=== PATIENT | male | born 1995 | race Caucasian/White ===

== ENCOUNTER 2024-11-09 08:28 | Outpatient (CLI) | payer OTHER, SELFPAY | END 2024-11-09 08:29 | disposition home or self-care (01) | LOC: NFLDREF 11-14 18:47 | PROVIDERS: Visit Provider Family Medicine | DX: R00.0 Tachycardia, unspecified (principal); E66.9 Obesity, unspecified; R79.89 Other specified abnormal findings of blood chemistry; Z13.220 Encounter for screening for lipoid disorders; Z13.6 Encounter for screening for cardiovascular disorders | CPT/HCPCS: 80053; 80061; 84439; 84443 ==